=== PATIENT | male | born 1965 | race Caucasian/White ===

== ENCOUNTER → 2016-12-22 | Outpatient (CLI) | payer OTHER | END | disposition home or self-care (01) | LOC: C.LAB 22:58 | DX: Z02.83 Encounter for blood-alcohol and blood-drug test (principal) ==

== ENCOUNTER 2018-05-21 08:01 | Observation (INO) ==
--- NOTE | 2018-05-14 08:08 | Anesthesiology Consultation ---
Date of Service May 14, 2018 Assessment & Plan (1) Encounter for pre-operative examination: Chart Review Chart Review: Acceptable Risk for Surgery and Patient NOT seen in Pre Admission Testing please notify surgeon of elevated WBC Consults Requested none History Surgery Operation Date: 05/21/18 09:40 Proposed Procedures p Left Mastectomy, Left [place] Lymph Node Biopsy, Possible Left Axillary Node Dissection - Roger Topete MD Height/Weight Height: 5 ft 10 in Weight: 97.976 kg Allergies Allergy/AdvReac Type Severity Reaction Status Date / Time Penicillins Allergy Unknown Verified 05/10/18 10:46 Medications Home Medications Medication Instructions Recorded Confirmed Last Taken amlodipine 5 mg PO QAM 05/10/18 05/10/18 Unknown atorvastatin 40 mg PO QAM 05/10/18 05/10/18 Unknown tamsulosin 0.4 mg PO QAM 05/10/18 05/10/18 Unknown Past Medical History Medical History BPH (benign prostatic hyperplasia) Cancer BREAST. LAST CHEMOTHERAPY 04/27/18 Hyperlipidemia Hypertension Sleep apnea CPAP Past Family History Family History Other No pertinent family history Past Surgical History Surgical History History of appendectomy History of arthroscopy LEFT KNEE X2 RIGHT KNEE X1 History of colonoscopy S/P ACL reconstruction LEFT Social History Smoking Status: Former smoker tobacco type: cigarettes Do You Dip or Chew Tobacco: Yes (1 CAN/4 DAYS (ADVISED)) Smoking End Date: ~2016 Hx Alcohol Use: No Hx Substance Use: No substance use type: does not use Exercise / Class Metabolic Activity II 4-5 Yardwork/Stairs/Walk up hill Testing Electrocardiogram Date: 10/24/17 Findings: + NSR @ (85 bpm) Stress Test Date: 11/10/17 Type: exercise Findings: + WNL and + achieved max HR (87% MPHR) Resting EF: 55-59% Resting LV Function: normal Resting RWMA: + none Valvular Disease: no significant valvular disease grade 1 LV diastolic dysfunction Laboratory Results 04/27/18 Na 141 K 4.3 Cl 100 CO2 26 BUN 14 Cr 0.8 glucose 153 WBC 15.46 Hgb 12.7 platelet 272
[~2018-05-21 08:01] MED LIST: LR 15ML/HR IV SCH
--- NOTE | 2018-05-21 09:06 | Nuclear Medicine Report ---
Study: [place] node injection HISTORY:. Left breast carcinoma FINDINGS: Following description of procedure and informed consent, a total of 5 injections for a tota l of 5 cc of technetium 99m lymphocele was administered. There are no complications. There is no foll ow-up imaging. IMPRESSION: Left breast sentinel node injection. Electronically signed by: Roger Jara M.D. 05/21/2018 9:04 AM
[2018-05-21] MEDS ORDERED: MIDAZOLAM HCL 1 MG/ML 2ML VIAL ONE (10:07)
--- NOTE | 2018-05-21 10:07 | History & Physical Bridge Note ---
Date of Service May 21, 2018 History & Physical Bridge Note I have examined the patient, reviewed the History & Physical and in the interval since the performance of the History & Physical I have noted the following changes of clinical significance: no changes noted
[2018-05-21] MEDS ORDERED: fentaNYL citrate 100 MCG/2 ML VIAL ONE ×2 (10:08→12:08)
[2018-05-21] MEDS ORDERED: LIDOCAINE HCL 2% 2 ML VIAL/AMP(20MG/ML) INFIL ONE (10:09)
[2018-05-21] MEDS ORDERED: PROPOFOL IV EMULSION 10 MG/ML 20 ML VIAL IV ONE (10:09)
[2018-05-21] MEDS ORDERED: ONDANSETRON INJ 2 MG/ML 2 ML VIAL IV PRN ×2 (10:09→14:37)
[2018-05-21] MEDS ORDERED: ePHEDrine sulfate 50 MG/ML AMP IV PRN (10:09)
[2018-05-21] MEDS ORDERED: ROCURONIUM BROMIDE 10 MG/ML 5 ML VIAL ONE (10:09)
[2018-05-21] MEDS ORDERED: ONDANSETRON INJ 2 MG/ML 2 ML VIAL ONE (10:09)
[2018-05-21] MEDS ORDERED: ATROPINE SULFATE 0.1 MG/ML 10ML SYR IV PRN (10:09)
[2018-05-21] MEDS ORDERED: ISOSULFAN BLUE 10 MG/ML VIAL 5 ML ONE (10:52)
[2018-05-21] MEDS ORDERED: BUPIVACAINE 0.5 % 5 MG/1 ML MPF 30ML VIAL ONE (10:52)
[2018-05-21] MEDS ORDERED: DEXAMETHASONE SOD INJ 4 MG/ML VIAL ONE (11:33)
[2018-05-21] MEDS ORDERED: HYDROmorphone INJ 2 MG/ML SYR/VIAL ONE (12:32)
[2018-05-21] MEDS ORDERED: WATER, STERILE FOR INJ 10 ML VIAL ONE (12:51)
--- NOTE | 2018-05-21 13:07 | Post Operative Brief Note ---
Immediate Post Op Note v1 Date of Surgery May 21, 2018 Pre & Post Diagnosis Operation Date: 05/21/18 09:40 Pre-Op Diagnosis: Left Breast Cancer Post-Op Diagnosis: Left Breast Cancer Procedure Operation Date: 05/21/18 09:40 Actual Procedures p Left Mastectomy, Left [place] Lymph Node Biopsy(Left) - Roger Topete MD Surgeon Roger Topete MD Wood Cutter Leslee Garcia PA-C Estimated Blood Loss 20 Findings Consistent with Post-Op Diagnosis Specimens Left breast One left axillary sentinel lymph node Drains Artemio-Cochran Drain (10FLAT, acreoos chest wall) Complications none
[2018-05-21] MEDS: fentaNYL citrate 100 MCG/2 ML VIAL IV PRN ×2 (13:44→13:49)
[2018-05-21] MEDS: HYDROmorphone INJ 1 MG/ML SYRINGE IV PRN ×2 (13:50→13:55)
--- NOTE | 2018-05-21 13:59 | Anesthesiology Progress Note ---
Date of Service May 21, 2018 Anesthesia Post Procedure Vital Signs Vital Signs: Temp Pulse Pulse Resp BP BP Pulse Ox 05/21/18 13:50 87 16 143/101 H 97 05/21/18 13:40 90 16 131/92 95 05/21/18 13:30 92 H 16 154/97 H 99 05/21/18 13:20 36.0 C L 92 H 16 156/97 H 100 05/21/18 09:21 36.9 C 89 20 149/85 H 96 Notes Mental Status: alert / awake / arousable Patient Amnestic to Procedure: Yes Nausea / Vomiting: adequately controlled Pain: adequately controlled Airway Patency, RR, SpO2: stable & adequate BP & HR: stable & adequate Hydration State: stable & adequate Anesthetic Complications: no major complications apparent
[2018-05-21] MEDS ORDERED: MoRPHine SULFATE 4 MG/ML 1 ML CARP\\VIAL IV PRN (14:37)
[2018-05-21] MEDS ORDERED: SODIUM CHLORIDE 0.9% 1000ML 1,000 ML IV SCH (14:37)
[2018-05-21] MEDS ORDERED: OXYCODONE/ACETAMINOPHEN 5mg/325mg TAB ONE (14:53)
--- NOTE | 2018-05-21 20:12 | Operative Report ---
DATE OF OPERATION: 05/21/2018 PREOPERATIVE DIAGNOSIS: Invasive carcinoma of the left breast. POSTOPERATIVE DIAGNOSIS: Same. PROCEDURE: Left mastectomy with left axillary sentinel lymph node biopsy. SURGEON: Roger Topete MD PHARMACOGNOSIST: Leslee Garcia PA-C FINDINGS: The patient's mass was in approximately the 2 o'clock position of the left breast just beyond the edge of the areola. The nipple was inverted. The mass was not encountered nor was the biopsy cavity during the procedure. There was 1 sentinel lymph node that was radioactive as well as blue identified, its in vivo counts were 22, its ex vivo counts were 299, and the background counts were 5. There were no other palpable lymph nodes identified either. Frozen section was obtained and there was no evidence of metastatic disease. TECHNIQUE: The patient was taken to radiology where the radiotracer was placed in the periareolar region. He was then brought to the operating room and placed on the operating table and the skin in the periareolar area was cleansed with alcohol and blue dye was then injected intradermally around the circumference of the areola. The area was then prepped and draped in the usual sterile fashion. The patient had the mass at about 2 o'clock just beyond the areola and so an oblique incision was chosen and sketched. The skin incision was made superiorly and then inferiorly. This enveloped the nipple-areolar complex. The superior flap was then created. Thinner flaps were chosen to assure that margins would be obtained. The superior flap was created working from medial to lateral from the lateral sternal border up to the clavicle and over towards the edge of the pectoralis major. The inferior incision was made and similar flap was created inferiorly. I then addressed the axilla and the axilla was identified. The axillary fascia was opened and using the Neoprobe, the sentinel lymph node which again was blue was identified. It was from the surrounding tissues using the LigaSure and sent for frozen section. There was no metastatic disease within the sentinel lymph node. The prepectoral fascia was then divided around the extent of the flap dissection and then the prepectoral flap was peeled off the underlying pectoralis major muscle working from medial to lateral until it was dissected off the lateral edge of pectoralis major. The lateral skin dissection was performed and then the breast was peeled off the lateral portion of the chest while working up to include the tail of Phillips and final amputation of the specimen was performed. It was marked with a white stitch medially and a black stitch superiorly. Meticulous hemostasis was then obtained using electrocautery. A separate stab incision was made in from lateral to the incision through which a 10 mm flat Artemio-Cochran was brought and was secured with a 3-0 nylon. The incision was then closed using interrupted 2-0 Vicryl for the subcutaneous tissue, a running 3-0 Vicryl for the superficial subcutaneous tissue, and a running 4-0 Monocryl in a subcuticular fashion for the skin. Skin was anesthetized with 0.5% Marcaine. The skin was cleansed, dried, benzoin placed. Steri-Strips applied. The estimated blood loss was 20 mL. Sponge, needle, and instrument counts were correct prior to closure. The patient tolerated the surgical procedure without complication and was transferred to recovery. I attest to the content of the Intraoperative Record and any orders documented therein. Any exception s are noted below.
[2018-05-22] MEDS: OXYCODONE/ACETAMINOPHEN 5mg/325mg TAB PO PRN ×2 (00:18→08:40)
--- NOTE | 2018-05-22 07:17 | Surgery Progress Note ---
Date of Service May 22, 2018 Assessment & Plan (1) Breast cancer of upper-outer quadrant of left male breast: Postoperative day #1, status post left mastectomy with left axillary sentinel lymph node biopsy Doing well Discussed instructions Understands how to use drain Can discharge to home Will let us know when his drainage decreases to under 20 cc a day and he can have the drain removed in the office Follow-up next week Subjective Postoperative day #1 Pain is well controlled He understands how to manage the drain He has had no nausea or vomiting He is ambulating Physical Exam 2 Vital Signs (Past 24 Hours): Last Vital Signs Temp 36.5 C 05/22/18 04:08 Pulse 94 H 05/22/18 04:08 Resp 16 05/22/18 04:08 BP 142/88 H 05/22/18 04:08 Pulse Ox 96 05/22/18 04:08 Respiratory: normal respiratory effort, lungs clear to auscultation Chest (Breasts): Additional Comments: Incision is clean and dry and intact Drain is intact No evidence of seroma
--- NOTE | 2018-05-22 08:22 | Anesthesiology Progress Note ---
Date of Service May 22, 2018 Anesthesia Post Procedure Vital Signs Vital Signs: Temp Pulse Pulse Resp BP BP Pulse Ox 05/22/18 08:10 36.5 C 97 H 94 H 18 163/90 H 98 05/22/18 07:18 36.5 C 97 H 18 163/90 H 98 05/22/18 04:08 36.5 C 94 H 16 142/88 H 96 05/21/18 23:25 36.7 C 95 H 18 141/81 H 96 05/21/18 18:58 36.5 C 82 18 145/71 H 96 05/21/18 16:18 36.9 C 90 18 148/80 H 97 05/21/18 15:20 18 150/94 H 96 05/21/18 14:35 36.9 C 90 16 152/84 H 94 05/21/18 14:10 36.1 C L 89 16 141/87 H 97 05/21/18 14:00 36.1 C L 87 16 168/102 H 97 05/21/18 13:50 87 16 143/101 H 97 05/21/18 13:40 90 16 131/92 95 05/21/18 13:30 92 H 16 154/97 H 99 05/21/18 13:20 36.0 C L 92 H 16 156/97 H 100 05/21/18 09:21 36.9 C 89 20 149/85 H 96 Pain Intensity Left Breast: Pain Intensity: 5 Notes Mental Status: alert / awake / arousable and participated in evaluation Patient Amnestic to Procedure: Yes Nausea / Vomiting: adequately controlled Pain: adequately controlled Airway Patency, RR, SpO2: stable & adequate BP & HR: stable & adequate Hydration State: stable & adequate Anesthetic Complications: no major complications apparent and Pt Satisfied with anesthetic care
[2018-05-22] MEDS ORDERED: AMLODIPINE BESYLATE 5 MG TAB PO SCH (09:00)
[2018-05-22] MEDS ORDERED: ATORVASTATIN 40 MG TAB PO SCH (09:00)
[2018-05-22] MEDS ORDERED: TAMSULOSIN HCL 0.4 MG CAP PO SCH (09:00)
--- NOTE | 2018-05-25 09:59 | Discharge Summary ---
Date of Service May 25, 2018 Admission HPI Per Admitting Provider Tony presented to [facility] for elective left mastectomy , left sentinel lymph node biopsy and possible axillary dissection for invasive breast cancer by Dr. Topete. Principal Diagnosis Left invasive breast cancer Discharge Data Allergies Allergy/AdvReac Type Severity Reaction Status Date / Time Penicillins Allergy Unknown Unknown Verified 05/21/18 08:43 Vaccinations None Consultations None Procedures Performed Operation Date: 05/21/18 09:40 Actual Procedures p Left Mastectomy, Left [place] Lymph Node Biopsy(Left) - Roger Topete MD Hospital Course (1) Breast cancer of upper-outer quadrant of left male breast: Patient was taken to operating room for left mastectomy, left sentinel lymph node biopsy and possible axillary dissection by Dr. Topete on 2018. Patient had one sentinel lymph node removed which was negative for metastatic disease so he did not require left axillary dissection. Patient tolerated procedure well and was transferred to recovery and then to medical/ surgical floor for post operative care. He was started on IV Morphine and PO Percocet as needed for pain, regular diet, activity as tolerated, IV Zofran prn nausea, IV Fluids and started on his oral home medications. Patient was evaluated on POD # 1. Vitals stable, afebrile, pain controlled, and tolerated diet. Jose drain had 105 cc output. He was discharged home on POD # 1 in stable condition with jose drain in place. Follow-up in surgical office once jose drainage is less than 20 cc. Overall hospital course was uneventful. Total Time Total Time Spent Total Time Spent (In Minutes): 20 Total Time Includes: Examination of the Patient, Discharge Planning and Medication Reconciliation Discharge Plan Discharge Items Patient Disposition: Home - Self-Care Reason For Visit: Left Breast Cancer W/NM INJ Discharge Diagnosis: same Discharge Goals: Decrease discomfort Activity: Per 'Additional Instructions' section Non-emergency contact: Surgeon Call non-emergency contact if: your pain is not controlled, your pain is worsening, your pain is concerning for you, you have a fever, your temperature is above 101, your wound has increased redness and your wound has increased drainage Follow-up/Referrals: Stevan Juarez D.O. [Primary Care Provider] - Diet: Regular Addtl Provider Instructions: No heavy lifting over 10 pounds with left arm or repetitive movements with left arm for at least 2 weeks No strenuous activity until cleared by surgeon No submerging incision underwater for 2 weeks (no bathing, swimming, or hot tubs ) No driving while taking narcotic pain medication or until you are pain free MEDICATIONS: Resume previous medications unless instructed otherwise by your surgeon. * Percocet 5/325 mg one tablet every 4 hours as needed for pain. * Ibuprofen 600 mg every 6 hours as needed for pain. SPECIAL CARE INSTRUCTIONS: * Sponge bath while having drain in place. Keep incision clean and dry. * Monitor drain output (color and amount) daily and keep record. Bring record with you to office at follow-up visit. * Leave steri strips on until seen in office. * Call the surgeon's office with any questions or concerns - (ex. temperature higher than 101 degrees F, excessive bleeding or pain). FOLLOW UP VISIT: If not already scheduled, please call the office for a follow-up appointment in one week at . Prescriptions: New oxycodone-acetaminophen 5-325 mg tablet 1 tab PO Q4H Qty: 18 RF: 0 Continue atorvastatin 40 mg Tablet 40 mg PO QAM RF: 0 amlodipine 5 mg Tablet 5 mg PO QAM RF: 0 tamsulosin 0.4 mg Capsule 0.4 mg PO QAM RF: 0 Visit Report Forms: My [facility] [employer] [facility] Stand-Alone Forms: Opioid Pain Management Discharge Orders: Discharge Order (Routine); Ordered 05/22/18 Ordered By: Roger Topete Admission Data Admit Date/Time: 05/21/18 13:44 Attending Provider: Roger Topete Admit Provider: Roger Topete Primary Care Provider: Stevan Juarez Service: Surgical Services Other Interventions: Discharge Summary Assessment (RN) Last Done: 05/22/18 08:10 Pending Studies at Discharge: Yes (Pathology, will be reviewed at follow-up visit) DC Date/Time DO NOT enter until pt leaves facility: 05/22/18 09:09
== END 2018-05-22 09:09 | disposition home or self-care (01) ==
LOC: 3N 08:01 → ASU 08:01